=== PATIENT | male | born 1965 | race Hispanic/Latino ===

== ENCOUNTER → 2018-07-30 | Outpatient (REF) | payer OTHER ==
[~2018-07-30] VITALS: Ht 180.3 cm; Wt 83.9 kg
[~2018-07-30] MED LIST: AMLODIPINE BESY10 MG PO; LOSARTAN POT100 MG PO
[2018-07-30 09:52] VITALS: BP 179/82
== END | disposition home or self-care (01) | DRG 951 ==
LOC: ORM 09:00 → PO 09:01
PROVIDERS: ATTEND Internal Medicine Gastroenterology
DX: Z01.818 Encounter for other preprocedural examination (principal); Z12.11 Encounter for screening for malignant neoplasm of colon; I10 Essential (primary) hypertension; Z96.651 Presence of right artificial knee joint; Z87.74 Personal history of (corrected) congenital malformations of heart and circulatory system; Z98.890 Other specified postprocedural states

== ENCOUNTER 2018-08-01 09:48 | Day surgery (SDC) | payer OTHER ==
[2018-08-01 11:29] VITALS: BP 164/88
== END 2018-08-01 11:48 | disposition home or self-care (01) | DRG 951 ==
LOC: ENDO 09:48
PROVIDERS: ATTEND Internal Medicine Gastroenterology
PROC: 0DBN8ZX Excision of Sigmoid Colon, Via Natural or Artificial Opening Endoscopic, Diagnostic (ICD-10-PCS; principal; 2018-08-01)
DX: Z12.11 Encounter for screening for malignant neoplasm of colon (principal); K63.5 Polyp of colon; K57.30 Diverticulosis of large intestine without perforation or abscess without bleeding; K62.89 Other specified diseases of anus and rectum; K64.8 Other hemorrhoids; K64.4 Residual hemorrhoidal skin tags; I10 Essential (primary) hypertension; Z95.1 Presence of aortocoronary bypass graft